=== PATIENT | female | born 1980 | race Caucasian/White ===

== ENCOUNTER → 2017-03-11 | Outpatient (CLI) | payer MEDICAID ==
[2017-03-11 12:56] LABS: HEMATOCRIT 33.2 % (36.0-47.0); HEMOGLOBIN 10.5 g/dL (12.0-15.5); MEAN CORPUSCULAR HGB CONC 31.6 g/dL (32.0-36.0); MEAN CORPUSCULAR VOLUME 73 fl (80-97); PLATELET COUNT 401 10^3/uL (150-450); RED BLOOD COUNT 4.57 10^6/uL (3.72-5.28); RED CELL DISTRIBUTION WIDTH 16.7 % (11.5-14.0); WHITE BLOOD COUNT 6.5 10^3/uL (4.0-10.5)
[2017-03-11 13:23] LABS: ALANINE AMINOTRANSFERASE 18 U/L (9-52); ALBUMIN 4.2 g/dL (3.5-5.0); ALKALINE PHOSPHATASE 48 U/L (38-126); ANION GAP 10 (5-19); ASPARTATE AMINO TRANSFERASE 16 U/L (14-36); BILIRUBIN,DIRECT 0.2 mg/dL (0.0-0.4); BILIRUBIN,TOTAL 0.3 mg/dL (0.2-1.3); BLOOD UREA NITROGEN 13 mg/dL (7-20); CALCIUM 9.5 mg/dL (8.4-10.2); CARBON DIOXIDE 26 mmol/L (22-30); CHLORIDE 105 mmol/L (98-107); GLUCOSE 114 mg/dL (75-110); IRON 12.5 ug/dL (37-170); POTASSIUM 4.5 mmol/L (3.6-5.0); SODIUM 140.5 mmol/L (137-145); TOTAL PROTEIN 6.7 g/dL (6.3-8.2)
[2017-03-11 13:54] LABS: FERRITIN 4.61 ng/mL (6.2-137.0)
[2017-03-11 14:28] LABS: FOLATE > 20.00 ng/mL (>2.76)
[2017-03-14 08:43] LABS: VITAMIN D 25-HYDROXY 32.5 ng/mL (30.0-100.0)
[2017-03-15 11:43] LABS: VITAMIN B6 11.3 ug/L (2.0-32.8)
[2017-03-15 14:42] LABS: VITAMIN B1 (THIAMINE) 121.9 nmol/L (66.5-200.0)
== END ==
LOC: OD 12:11
PROVIDERS: ATTEND Family Medicine
DX: E46 Unspecified protein-calorie malnutrition (principal); K90.9 Intestinal malabsorption, unspecified; Z98.84 Bariatric surgery status
CPT/HCPCS: 36415; 80048; 80076; 82306; 82607; 82728; 82746; 83540; 83970; 84207; 84425; 85027

== ENCOUNTER → 2019-08-09 | Outpatient (CLI) | payer MEDICAID ==
[2019-08-10 06:37] LABS: THYROID PEROXIDASE (TPO) AB 113 IU/mL (0-34)
[2019-08-10 07:06] LABS: THYROGLOBULIN AB <1.0 IU/mL (0.0-0.9)
[2019-08-10 10:45] LABS: ANTINUCLEAR ANTIBODIES Negative (Negative)
== END ==
LOC: OD 09:30
PROVIDERS: ATTEND Clinical Neuropsychologist
DX: E06.3 Autoimmune thyroiditis (principal); F33.0 Major depressive disorder, recurrent, mild; R73.9 Hyperglycemia, unspecified; F90.0 Attention-deficit hyperactivity disorder, predominantly inattentive type; K21.9 Gastro-esophageal reflux disease without esophagitis; R63.5 Abnormal weight gain; N39.3 Stress incontinence (female) (male); H93.13 Tinnitus, bilateral; K58.2 Mixed irritable bowel syndrome; R00.2 Palpitations; G31.84 Mild cognitive impairment of uncertain or unknown etiology; M26.609 Unspecified temporomandibular joint disorder, unspecified side; M13.0 Polyarthritis, unspecified; R53.82 Chronic fatigue, unspecified; G47.30 Sleep apnea, unspecified; Z87.820 Personal history of traumatic brain injury
CPT/HCPCS: 36415; 81291; 82533; 82627; 82670; 83001; 83520; 84144; 84402; 84403; 84481; 86038; 86376

== ENCOUNTER → 2019-08-26 | Outpatient (CLI) | payer MEDICAID ==
[2019-08-26 12:54] LABS: ABSOLUTE BASOPHILS # (AUTO) 0.1 10^3/uL (0.0-0.2); ABSOLUTE EOSINOPHILS # (AUTO) 0.1 10^3/uL (0.0-0.6); ABSOLUTE MONOCYTES (AUTO) 0.4 10^3/uL (0.1-1.4); ABSOLUTE NEUT (AUTO) 3.4 10^3/uL (1.7-8.2); BASOPHILS % (AUTO) 1.4 % (0-2); EOSINOPHILS % (AUTO) 1.2 % (0-6); HEMATOCRIT 40.2 % (36.0-47.0); HEMOGLOBIN 13.8 g/dL (12.0-15.5); LYMPHOCYTES % (AUTO) 33.4 % (13-45); MEAN CORPUSCULAR HEMOGLOBIN 30.6 pg (27.0-33.4); MEAN CORPUSCULAR HGB CONC 34.3 g/dL (32.0-36.0); MEAN CORPUSCULAR VOLUME 89 fl (80-97); PLATELET COUNT 318 10^3/uL (150-450); RED BLOOD COUNT 4.51 10^6/uL (3.72-5.28); RED CELL DISTRIBUTION WIDTH 12.6 % (11.5-14.0); TOTAL CELLS COUNTED % (AUTO) 100 %; WHITE BLOOD COUNT 5.9 10^3/uL (4.0-10.5)
[2019-08-26 13:09] LABS: INTERNATIONAL RATION (INR) 0.97; PARTIAL THROMBOPLASTIN TIME 26.3 SEC (23.5-35.8); PROTHROMBIN TIME 12.9 SEC (11.4-15.4)
[2019-08-26 13:21] LABS: ALBUMIN 4.5 g/dL (3.5-5.0); ALKALINE PHOSPHATASE 56 U/L (38-126); ANION GAP 7 (5-19); ASPARTATE AMINO TRANSFERASE 22 U/L (14-36); BILIRUBIN,TOTAL 0.5 mg/dL (0.2-1.3); BLOOD UREA NITROGEN 12 mg/dL (7-20); CALCIUM 9.6 mg/dL (8.4-10.2); CARBON DIOXIDE 25 mmol/L (22-30); CHLORIDE 103 mmol/L (98-107); GLUCOSE 96 mg/dL (75-110); IRON(TIBC) 96.7 ug/dL (37-170); POTASSIUM 5.1 mmol/L (3.6-5.0); TOTAL PROTEIN 7.4 g/dL (6.3-8.2)
[2019-08-26 13:36] LABS: ERYTHROCYTE SEDIMENTATION RATE 11 mm/hr (0-20)
[2019-08-26 14:25] LABS: C-REACTIVE PROTEIN < 5.0 mg/L (<10.0); FOLATE > 20.00 ng/mL (>2.76)
== END ==
LOC: OD 11:50
PROVIDERS: ATTEND Family Medicine
DX: R58 Hemorrhage, not elsewhere classified (principal)
CPT/HCPCS: 36415; 80053; 82607; 82728; 82746; 82785; 83540; 83550; 84443; 85025; 85610; 85652; 85730; 86140; 86160; 86161

== ENCOUNTER → 2019-12-27 | Outpatient (CLI) | payer MEDICAID ==
--- OUTSIDE RECORDS SUMMARY | 2019-12-28 18:17 | XMS REPORT ---
:1980 [facility] [address] [place] [address] Care Team Providers Name Role Phone MICHAEL BLAIR Primary Care Physician Unavailable Georgi TRIPLETT Attending Clinician Unavailable Ranjan TRIPLETT Attending Clinician Unavailable Harshal Unavailable Unavailable Carina Marshall MD Unavailable Allergies, Adverse Reactions, Alerts Allergy Allergy Status Severity Reaction(s) Onset Inactive Treating C omments Name Type Date Date Clinician Adhesive Allergy to Active Severe Rash substance Medications Ordered Filled Start Stop Current Ordering Indication Dosage Frequency Signature Comments Components Medication Medication Date Date Medication? Clinician (SIG) Name Name Calcium 500 2017-02 Yes 1tablet QD Calcium MG Oral 02-15 500 MG Tablet - 14:25: Oral Historical 08 Tablet - Medication Historical Medication 1 tablet daily Active Iron 2017-02 Yes 1tablet QD Iron (Ferrous 02-15 (Ferrous Sulfate) 14:25: Sulfate) 325 MG Oral 08 325 MG Tablet - Oral Historical Tablet - Medication Historical Medication 1 tablet daily Active Multivitami 2017-02 Yes 1capsul QD Multivitam ns Oral 02-15 e ins Oral Capsule - 14:25: Capsule - Historical 08 Historical Medication Medication 1 capsule daily Active Vitamin C 2017-02 Yes 1tablet QD Vitamin C 100 MG Oral 1 100 MG Tablet - 14:25: Oral Historical 08 Tablet - Medication Historical Medication 1 tablet daily Active Vitamin D 2017-02 Yes 1tablet QD Vitamin D (Cholecalci 02-15 (Cholecalc ferol) 1000 14:25: iferol) UNIT Oral 08 1000 UNIT Tablet - Oral Historical Tablet - Medication Historical Medication 1 tablet daily Active Adderall 30 Yes 2tablet QD Adderall MG Oral 8-21 s 30 MG Oral Tablet - 15:04: Tablet - Historical 15 Historical Medication Medication 2 tablets daily Active Iron No QD Iron (Ferrous 8-21 (Ferrous Sulfate) - 15:04: Sulfate) - Historical 15 Historical Medication Medication daily Active Paxil 40 MG Yes 1tablet QD Paxil 40 Oral Tablet 8-21 MG Oral - 15:04: Tablet - Historical 15 Historical Medication Medication 1 tablet daily Active ibuprofen No 1 TID ibuprofen 800 mg 800 mg tablet Take tablet 1 tablet 3 Take 1 times a day tablet 3 by oral times a route as day by needed. oral route as needed. Tylenol No 2 Q6H Tylenol Extra Extra Strength Strength 500 mg 500 mg tablet Take tablet 2 tablets Take 2 every 6 tablets hours by every 6 oral route hours by as needed. oral route as needed. Adderall 20 No 1 Q1D Adderall mg tablet 20 mg Take 1 tablet tablet Take 1 every day tablet by oral every day route. by oral route. Adderall XR No Adderall 20 mg XR 20 mg capsule,ext capsule,ex ended tended release release TAKE 1 TAKE 1 CAPSULE BY CAPSULE BY MOUTH THREE MOUTH TIMES A DAY THREE TIMES A DAY celecoxib No celecoxib 200 mg 200 mg capsule capsule TAKE 1 TAKE 1 CAPSULE BY CAPSULE BY MOUTH EVERY MOUTH DAY EVERY DAY NEEDED NEEDED dexamethaso No 1mL dexamethas ne sodium one sodium phosphate phosphate (PF) 10 (PF) 10 mg/mL mg/mL injection injection syringe syringe Take 1 mL Take 1 mL by by injection injection route. route. diclofenac No diclofenac 1 % topical 1 % gel APPLY 4 topical GRAMS TO gel APPLY AFFECTED 4 GRAMS TO AREA(S) 4 AFFECTED TIMES A DAY AREA(S) 4 TIMES A DAY diclofenac No diclofenac 3 % topical 3 % gel APPLY topical 1-2 GRAMS gel APPLY TO THE 1-2 GRAMS AFFECTED TO THE AREA 3-4 AFFECTED TIMES A DAY AREA 3-4 TIMES A DIRECTED. DAY DIRECTED. dicyclomine No dicyclomin 10 mg e 10 mg capsule capsule TAKE 1 TAKE 1 CAPSULE BY CAPSULE BY MOUTH FOUR MOUTH FOUR TIMES A DAY TIMES A NEEDED DAY FOR 30 DAYS NEEDED FOR 30 DAYS diphenhydra No 1mL diphenhydr mine 50 amine 50 mg/mL mg/mL injection injection syringe syringe Take 1 mL Take 1 mL by by injection injection route. route. hydrocodone No hydrocodon 5 e 5 mg-acetamin mg-acetami ophen 325 nophen 325 mg tablet mg tablet TAKE 1 TAKE 1 TABLET(S) TABLET(S) EVERY 4 6 EVERY 4 6 HOURS BY HOURS BY ORAL ROUTE ORAL ROUTE NEEDED NEEDED FOR 7 DAYS. FOR 7 DAYS. hydrocortis No hydrocorti one 5 mg sone 5 mg tablet tablet PLEASE SEE PLEASE SEE ATTACHED ATTACHED FOR FOR DETAILED DETAILED DIRECTIONS DIRECTIONS hydroxyzine No 1 TID hydroxyzin HCl 25 mg e HCl 25 tablet Take mg tablet 1 tablet 3 Take 1 times a day tablet 3 by oral times a route as day by needed. oral route as needed. levothyroxi No 1 Q1D levothyrox ne 25 mcg ine 25 mcg tablet Take tablet 1 tablet Take 1 every day tablet by oral every day route as by oral directed route as for 90 directed days. for 90 days. lidocaine-p No lidocaine- rilocaine prilocaine 2.5 %-2.5 % 2.5 %-2.5 topical % topical cream APPLY cream 1-2 GRAMS APPLY 1-2 TO THE GRAMS TO AFFECTED THE AREA 3-4 AFFECTED TIMES A DAY AREA 3-4 TIMES A DIRECTED. DAY DIRECTED. methocarbam No methocarba ol 500 mg mol 500 mg tablet TAKE tablet 1 TABLET BY TAKE 1 MOUTH THREE TABLET BY TIMES A DAY MOUTH NEEDED THREE TIMES A DAY NEEDED omeprazole No omeprazole 40 mg 40 mg capsule,del capsule,de ayed layed release release TAKE 1 TAKE 1 CAPSULE BY CAPSULE BY MOUTH EVERY MOUTH DAY EVERY DAY paroxetine No paroxetine 40 mg 40 mg tablet TAKE tablet 1 TABLET BY TAKE 1 MOUTH EVERY TABLET BY DAY IN THE MOUTH MORNING EVERY DAY IN THE MORNING prednisone No 3 Q1D prednisone 20 mg 20 mg tablet Take tablet 3 tablets Take 3 every day tablets by oral every day route for 7 by oral days. route for 7 days. progesteron No progestero e ne micronized micronized 100 mg 100 mg capsule capsule TAKE 2 TAKE 2 CAPSULES AT CAPSULES BEDTIME AT BEDTIME triamcinolo No triamcinol ne one acetonide acetonide 0.1 % 0.1 % topical topical cream APPLY cream A THIN APPLY A LAYER TO THIN LAYER THE TO THE AFFECTED AFFECTED AREA(S) BY AREA(S) BY TOPICAL TOPICAL ROUTE 2 ROUTE 2 TIMES PER TIMES PER DAY DAY Problems Condition Condition Condition Status Onset Resolution Last Treatin g Comments Name Details Category Date Date Treatment Clinician Date Hypothyroid Hypothyroid Problem Active 2019-02 ism ism 02-20 00:00: 00 Dysplastic Dysplastic Problem Active nevus of Nevus of 6-24 skin of Skin of 00:00: left upper Left Upper 00 limb Limb Multiple Multiple Problem Active joint pain Joint Pain 6-02 00:00: 00 Neck pain Neck Pain Problem Active 6-02 00:00: 00 Thoracic Thoracic Problem Active back pain Back Pain 6-02 00:00: 00 Low back Low Back Problem Active pain Pain 5-07 00:00: 00 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, Disorder, 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 05-24 00:00: 00 Body mass Body Mass Problem Active index 25-29 Index 25-29 4- - - 00:00: overweight Overweight 00 Generalized Generalized Problem Active anxiety Anxiety 4- disorder Disorder 00:00: 00 Gastroesoph Gastroesoph Problem Active ageal ageal 4-09 reflux Reflux 00:00: disease Disease 00 without without esophagitis Esophagitis Irritable 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 Syndrome 00:00: 00 Chronic low Chronic Low Problem Active back pain Back Pain 4- 00:00: 00 DUB DUB Problem Active Harshal (DYSFUNCTIO (DYSFUNCTIO Hilaria NAL UTERINE NAL UTERINE BLEEDING) BLEEDING) INTRAMURAL INTRAMURAL Problem Active Alvin 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 No Condition Inactiv Impairment e Information Available DYSMENORRHE DYSMENORRHE Problem Active David Caputo MENORRHAGIA MENORRHAGIA Problem Active JOSE RAUL Caputo REGULAR REGULAR CYCLE CYCLE PREOP PREOP Problem Active Harshal EXAMINATION EXAMINATION Hilaria FATIGUE FATIGUE Problem Active Shara Marshall POSTOPERATI POSTOPERATI Problem Active JEWEL Caputo EXAMINATION EXAMINATION Procedures Procedure Date / Time Performed Performing Clinician Tyrese ortiz US, pelvis, transabdominal + 2019-12-23 00:00:00 transvaginal pulse oximetry (PROC) 2019-12-15 00:00:00 pulse oximetry (PROC) 2019-12-01 00:00:00 MRI, lumbar spine, w/o contrast 2019-08-17 00:00:00 XR, cervical spine 2019-06-22 00:00:00 XR, thoracic spine 2019-06-22 00:00:00 XR, lumbar spine 2019-06-22 00:00:00 Other 2017-12-16 00:00:00 Gastrointestinal Surgery 2015-11-16 00:00:00 OFFICE/OUTPATIENT VISIT, EST 2015-05-03 10:45:00 OFFICE/OUTPATIENT VISIT, EST 2015-03-07 10:30:00 FLU VACCINE AGE 3 \T\ OVER, IM 2014-12-19 14:30:00 IMMUNIZATION ADMIN 2014-12-19 14:30:00 OFFICE/OUTPATIENT VISIT, NEW 2014 14:30:00 Tubal Ligation 2013-10-30 00:00:00 Cholecystectomy 2007-01-15 00:00:00 Delivery Hilaria Caputo Colonoscopy Harshal, Hilaria Endoscopy Hilaria Caputo Gallbladder Surgery Hilaria Caputo Gastrectomy Hilaria Caputo Mammogram, Screening Hilaria Caputo Pap Smear Hilaria Caputo Ultrasound, Transvaginal Hilaria Caputo Caesarean Section Results Test Description Test Time Test Comments Text Results Atomic Results Result Comments COMPREHENSIVE METABOLIC PANEL 2019-12-21 17:37:00 Test Item Value Reference Range Comments GLUCOSE (test code = 2345-7) 82 mg/dL 65-99 Fas ting reference interval UREA NITROGEN (BUN) (test 11 mg/dL 09-08 code = 3094-0) CREATININE (test code = 0.94 mg/dL 0.50-1.10 0-0) eGFR NON-AFR. MALAGASY (test 75 mL/min/1.73m2 >=60 code = 95956-8) eGFR (test 87 mL/min/1.73m2 >=60 code = 17284-6) BUN/CREATININE RATIO (test NOT APPLICABLE (calc) 08-06 code = 3097-3) SODIUM (test code = 2951-2) 138 mmol/L 135-146 POTASSIUM (test code = 5.0 mmol/L 3.5-5.3 3-3) CHLORIDE (test code = 105 mmol/L 98-110 2074-0) CARBON DIOXIDE (test code = 27 mmol/L 20-32 2027-) CALCIUM (test code = 8.9 mg/dL 8.6-10.2 99511-4) PROTEIN, TOTAL (test code = 5.9 g/dL 6.1-8.1 2885-2) ALBUMIN (test code = 1751-7) 4.0 g/dL 3.6-5.1 GLOBULIN (test code = 1.9 g/dL (calc) 1.9-3.7 30182-1) ALBUMIN/GLOBULIN RATIO (test 2.1 (calc) 1.0-2.5 code = 1759-0) BILIRUBIN, TOTAL (test code 0.3 mg/dL 0.2-1.2 = 1974-) ALKALINE PHOSPHATASE (test 43 U/L 31-125 code = 6768-6) AST (test code = 1920-8) 11 U/L 10-30 ALT (test code = 1742-6) 10 U/L 6-29 CBC (INCLUDES DIFF/PLT)2019-12-21 17:37:00 Test Item Value Reference Range Comments WHITE BLOOD CELL COUNT (test code = 6690-2) 7.5 Thousand/uL 3.8- 10.8 RED BLOOD CELL COUNT (test code = 789-8) 4.30 Million/uL 3.80-5. 10 HEMOGLOBIN (test code = 718-7) 13.4 g/dL 11.7-15.5 HEMATOCRIT (test code = 4544-3) 40.6 % 35.0-45.0 MCV (test code = 787-2) 94.4 fL 80.0-100.0 MCH (test code = 785-6) 31.2 pg 27.0-33.0 MCHC (test code = 786-4) 33.0 g/dL 32.0-36.0 RDW (test code = 788-0) 12.9 % 11.0-15.0 PLATELET COUNT (test code = 777-3) 259 Thousand/uL 140-400 MPV (test code = 776-5) 9.4 fL 7.5-12.5 ABSOLUTE NEUTROPHILS (test code = 751-8) 4965 cells/uL 1500-78 00 ABSOLUTE LYMPHOCYTES (test code = 731-0) 1950 cells/uL 850-390 0 ABSOLUTE MONOCYTES (test code = 742-7) 413 cells/uL 200-950 ABSOLUTE EOSINOPHILS (test code = 711-2) 83 cells/uL 15-500 ABSOLUTE BASOPHILS (test code = 704-7) 90 cells/uL 0-200 NEUTROPHILS (test code = 770-8) 66.2 % LYMPHOCYTES (test code = 736-9) 26.0 % MONOCYTES (test code = 5905-5) 5.5 % EOSINOPHILS (test code = 713-8) 1.1 % BASOPHILS (test code = 706-2) 1.2 % YUE SCREEN, IFA, W/REFL TITER AND [id number] 17:37:00 Test Item Value Reference Range Comments YUE SCREEN, IFA (test POSITIVE NEGATIVE YUE IFA is a first line screen for code = 74367-9) detecting thepre sence of up to approximately 15 0 autoantibodies invarious autoim mune diseases. A positive YUE IFA resultis suggestive of au toimmune disease and reflexes tot iter and pattern. Further laborato ry testing may beconsidered if clinically indicated.For ad ditional information, ple ase refer [email or web address] onNfoshare/faq/CBT824( This link is being provided for informational/ed ucational purposes only.) ANTINUCLEAR ANTIBODIES TITER AND [id number] 17:37:00 Test Item Value Reference Range Comments YUE TITER (test 1:40 titer <=40 A low level YUE titer may be code = 5048-4) present in pre-clinicalauto immune diseases and normal indiv iduals.Reference Range<1:40 Negat ive1:40-1:80 Low Antibody Level>1 :80 Elevated Antibody Level YUE PATTERN (test Nuclear, Speckled Speckled pat tern is associated code = 37050-8) with mixed conne ctivetissue disease (MCTD), systemic lupus erythematosus(SL E), Sjogren's syndrome, dermat omyositis, andsystemic sclerosis/polymy ositis overlap.AC-2,4,5 ,29: SpeckledInternat ional Consensus on YUE Patterns(https:/ /doi.org/10.1515 /zlow-[email or web address]) CREATINE KINASE, [id number] 17:37:00 Test Item Value Reference Range Comments CREATINE KINASE, TOTAL (test code = 2157-6) 26 U/L 29-1 43 [id number] 17:37:00 Test Item Value Reference Range Comments TSH (test code = 3016-3) 1.72 mIU/L .4-4.5 Referen ce Range> or = 20 Years 0.40-4.50Pregnan cy RangesFirst trimester 0.26-2 .66Second trimester 0.55-2 .73Third trimester 0.43-2 .91 Drugs identified in Urine by Screen [id number] 15:24:00 Test Item Value Reference Range Comments RESULT THC (test code = RESULT THC) negative INTERPRETATION THC (test code = INTERPRETATION THC) normal RESULT BUP (Buprenorphine, Suboxone, Subutex) (test negative code = RESULT BUP (Buprenorphine, Suboxone, Subutex)) INTERPRETATION BUP (Buprenorphine, Suboxone, normal Subutex) (test code = INTERPRETATION BUP (Buprenorphine, Suboxone, Subutex)) RESULT BAR (Barbiturates) (test code = RESULT BAR negative (Barbiturates)) INTERPRETATION BAR (Barbiturates) (test code = normal INTERPRETATION BAR (Barbiturates)) RESULT BZO (Benzodiazepines) (test code = RESULT negative BZO (Benzodiazepines)) INTERPRETATION BZO (Benzodiazepines) (test code = normal INTERPRETATION BZO (Benzodiazepines)) RESULT MTD (Methadone) (test code = RESULT MTD negative (Methadone)) INTERPRETATION MTD (Methadone) (test code = normal INTERPRETATION MTD (Methadone)) RESULT AMP (Amphetamines) (test code = RESULT AMP positive (Amphetamines)) INTERPRETATION AMP (Amphetamines) (test code = normal INTERPRETATION AMP (Amphetamines)) RESULT MOP (Morphine, Heroin) (test code = RESULT negative MOP (Morphine, Heroin)) INTERPRETATION MOP (Morphine, Heroin) (test code = abnormal INTERPRETATION MOP (Morphine, Heroin)) RESULT OXY (Oxycodone) (test code = RESULT OXY negative (Oxycodone)) INTERPRETATION OXY (Oxycodone) (test code = normal INTERPRETATION OXY (Oxycodone)) RESULT MDMA (Ecstasy) (test code = RESULT MDMA negative (Ecstasy)) INTERPRETATION MDMA (Ecstasy) (test code = normal INTERPRETATION MDMA (Ecstasy)) RESULT STACIA (Cocaine) (test code = RESULT STACIA negative (Cocaine)) INTERPRETATION STACIA (Cocaine) (test code = normal INTERPRETATION STACIA (Cocaine)) RESULT PCP (test code = RESULT PCP) negative INTERPRETATION PCP (test code = INTERPRETATION PCP) normal RESULT MET (Methamphetamines) (test code = RESULT negative MET (Methamphetamines)) INTERPRETATION MET (Methamphetamines) (test code = normal INTERPRETATION MET (Methamphetamines)) specimen validity [id number] 00:00:00 Test Item Value Reference Range Comments creatinine, seda (test code = creatinine, seda) 113.1 mg/dL 5-400 pH, seda (test code = pH, seda) 8.1 4.5-9.0 oxidants, seda (test code = oxidants, seda) not detected 0-50 specific gravity, seda (test code = specific 1.012 1.0 03-1.035 gravity, seda) amphetamine, seda (test code = amphetamine, 1883 NG/mL >100 seda) amphetamine, cutoff (test code = amphetamine, 100 NG/mL >1 00 cutoff) amphetamine (test code = amphetamine) detected >100 amphetamine, interp (test code = amphetamine, consistent >1 00 interp) amphetamine, creat adj (test code = 1665 NG/mL >100 amphetamine, creat adj) methamphetamine, seda (test code = 0 NG/mL >100 methamphetamine, seda) methamphetamine, cutoff (test code = 100 NG/mL >100 methamphetamine, cutoff) methamphetamine (test code = methamphetamine) not detected >1 00 ritalinic acid, seda (test code = ritalinic 0 NG/mL >50 acid, seda) ritalinic acid, cutoff (test code = ritalinic 50 NG/mL >5 0 acid, cutoff) ritalinic acid (test code = ritalinic acid) not detected >50 duloxetine, seda (test code = duloxetine, seda) 0 NG/mL >50 duloxetine, cutoff (test code = duloxetine, 50 NG/mL >50 cutoff) duloxetine (test code = duloxetine) not detected >50 trazodone , seda (test code = trazodone , seda) 0 NG/mL >50 trazodone , cutoff (test code = trazodone , 50 NG/mL >50 cutoff) trazodone (test code = trazodone) not detected >50 gabapentin, seda (test code = gabapentin, seda) 0 NG/mL >250 gabapentin, cutoff (test code = gabapentin, 250 NG/mL >250 cutoff) gabapentin (test code = gabapentin) not detected >250 pregabalin, seda (test code = pregabalin, seda) 0 NG/mL >250 pregabalin, cutoff (test code = pregabalin, 250 NG/mL >250 cutoff) pregabalin (test code = pregabalin) not detected >250 topiramate, seda (test code = topiramate, seda) 0 NG/mL >50 topiramate, cutoff (test code = topiramate, 50 NG/mL >50 cutoff) topiramate (test code = topiramate) not detected >50 fentanyl, seda (test code = fentanyl, seda) 0 NG/mL >1.0 fentanyl, cutoff (test code = fentanyl, cutoff) 1.0 NG/mL >1.0 fentanyl (test code = fentanyl) not detected >1.0 norfentanyl, seda (test code = norfentanyl, 0 NG/mL >10 seda) norfentanyl, cutoff (test code = norfentanyl, 10 NG/mL >1 0 cutoff) norfentanyl (test code = norfentanyl) not detected >10 norketamine, seda (test code = norketamine, 0 NG/mL >50 seda) norketamine, cutoff (test code = norketamine, 50 NG/mL >5 0 cutoff) norketamine (test code = norketamine) not detected >50 tapentadol, seda (test code = tapentadol, seda) 0 NG/mL >50 tapentadol, cutoff (test code = tapentadol, 50 NG/mL >50 cutoff) tapentadol (test code = tapentadol) not detected >50 N-desmethyltapentadol, seda (test code = 0 NG/mL >50 N-desmethyltapentadol, seda) N-desmethyltapentadol, cutoff (test code = 50 NG/mL >50 N-desmethyltapentadol, cutoff) N-desmethyltapentadol (test code = not detected >50 N-desmethyltapentadol) tramadol, seda (test code = tramadol, seda) 0 NG/mL >50 tramadol, cutoff (test code = tramadol, cutoff) 50 NG/mL >50 tramadol (test code = tramadol) not detected >50 desmethyltramadol , seda (test code = 0 NG/mL >50 desmethyltramadol , seda) desmethyltramadol , cutoff (test code = 50 NG/mL >50 desmethyltramadol , cutoff) desmethyltramadol (test code = not detected >50 desmethyltramadol) butalbital, seda (test code = butalbital, seda) 0 NG/mL >200 butalbital, cutoff (test code = butalbital, 200 NG/mL >200 cutoff) butalbital (test code = butalbital) not detected >200 phenobarbital, seda (test code = phenobarbital, 0 NG/mL >200 seda) phenobarbital, cutoff (test code = 200 NG/mL >200 phenobarbital, cutoff) phenobarbital (test code = phenobarbital) not detected >200 alprazolam, seda (test code = alprazolam, seda) 0 NG/mL >50 alprazolam, cutoff (test code = alprazolam, 50 NG/mL >50 cutoff) alprazolam (test code = alprazolam) not detected >50 A-hydroxyalprazolam, sdea (test code = 0 NG/mL >50 A-hydroxyalprazolam, seda) A-hydroxyalprazolam, cutoff (test code = 50 NG/mL >50 A-hydroxyalprazolam, cutoff) A-hydroxyalprazolam (test code = not detected >50 A-hydroxyalprazolam) 7-aminoclonazepam, seda (test code = 0 NG/mL >50 7-aminoclonazepam, seda) 7-aminoclonazepam, cutoff (test code = 50 NG/mL >50 7-aminoclonazepam, cutoff) 7-aminoclonazepam (test code = not detected >50 7-aminoclonazepam) nordiazepam, seda (test code = nordiazepam, 0 NG/mL >50 seda) nordiazepam, cutoff (test code = nordiazepam, 50 NG/mL >5 0 cutoff) nordiazepam (test code = nordiazepam) not detected >50 temazepam, seda (test code = temazepam, seda) 0 NG/mL >5 0 temazepam, cutoff (test code = temazepam, 50 NG/mL >50 cutoff) temazepam (test code = temazepam) not detected >50 oxazepam, seda (test code = oxazepam, seda) 0 NG/mL >50 oxazepam, cutoff (test code = oxazepam, cutoff) 50 NG/mL >50 oxazepam (test code = oxazepam) not detected >50 lorazepam, seda (test code = lorazepam, seda) 0 NG/mL >5 0 lorazepam, cutoff (test code = lorazepam, 50 NG/mL >50 cutoff) lorazepam (test code = lorazepam) not detected >50 carisoprodol, seda (test code = carisoprodol, 0 NG/mL >5 0 seda) carisoprodol, cutoff (test code = carisoprodol, 50 NG/mL >50 cutoff) carisoprodol (test code = carisoprodol) not detected >50 buprenorphine, seda (test code = buprenorphine, 0 NG/mL >2.5 seda) buprenorphine, cutoff (test code = 2.5 NG/mL >2.5 buprenorphine, cutoff) buprenorphine (test code = buprenorphine) not detected >2.5 norbuprenorphine, seda (test code = 0 NG/mL >10 norbuprenorphine, seda) norbuprenorphine, cutoff (test code = 10 NG/mL >10 norbuprenorphine, cutoff) norbuprenorphine (test code = norbuprenorphine) not detected >10 ethyl glucuronide, seda (test code = ethyl 0 NG/mL >250 glucuronide, seda) ethyl glucuronide, cutoff (test code = ethyl 250 NG/mL >25 0 glucuronide, cutoff) ethyl glucuronide (test code = ethyl not detected >250 glucuronide) ethyl sulfate, seda (test code = ethyl sulfate, 0 NG/mL >150 seda) ethyl sulfate, cutoff (test code = ethyl 150 NG/mL >150 sulfate, cutoff) ethyl sulfate (test code = ethyl sulfate) not detected >150 methadone, seda (test code = methadone, seda) 0 NG/mL >5 0 methadone, cutoff (test code = methadone, 50 NG/mL >50 cutoff) methadone (test code = methadone) not detected >50 EDDP, seda (test code = EDDP, seda) 0 NG/mL >50 EDDP, cutoff (test code = EDDP, cutoff) 50 NG/mL >50 EDDP (test code = EDDP) not detected >50 codeine, seda (test code = codeine, seda) 0 NG/mL >50 codeine, cutoff (test code = codeine, cutoff) 50 NG/mL >5 0 codeine (test code = codeine) not detected >50 morphine, seda (test code = morphine, seda) 0 NG/mL >50 morphine, cutoff (test code = morphine, cutoff) 50 NG/mL >50 morphine (test code = morphine) not detected >50 6-acetylmorphine , seda (test code = 0 NG/mL >25 6-acetylmorphine , seda) 6-acetylmorphine , cutoff (test code = 25 NG/mL >25 6-acetylmorphine , cutoff) 6-acetylmorphine (test code = 6-acetylmorphine) not detected >25 hydrocodone, seda (test code = hydrocodone, 0 NG/mL >50 seda) hydrocodone, cutoff (test code = hydrocodone, 50 NG/mL >5 0 cutoff) hydrocodone (test code = hydrocodone) not detected >50 hydromorphone, seda (test code = hydromorphone, 0 NG/mL >50 seda) hydromorphone, cutoff (test code = 50 NG/mL >50 hydromorphone, cutoff) hydromorphone (test code = hydromorphone) not detected >50 norhydrocodone, seda (test code = 0 NG/mL >50 norhydrocodone, seda) norhydrocodone, cut (test code = 50 NG/mL >50 norhydrocodone, cut) norhydrocodone (test code = norhydrocodone) not detected >50 normorphine, seda (test code = normorphine, 0 NG/mL >50 seda) normorphine, cut (test code = normorphine, cut) 50 NG/mL >50 normorphine (test code = normorphine) not detected >50 norcodeine, seda (test code = norcodeine, seda) 0 NG/mL >50 norcodeine, cutoff (test code = norcodeine, 50 NG/mL >50 cutoff) norcodeine, qual (test code = norcodeine, qual) not detected >50 oxycodone, seda (test code = oxycodone, seda) 0 NG/mL >5 0 oxycodone, cutoff (test code = oxycodone, 50 NG/mL >50 cutoff) oxycodone (test code = oxycodone) not detected >50 noroxycodone, seda (test code = noroxycodone, 0 NG/mL >5 0 seda) noroxycodone, cutoff (test code = noroxycodone, 50 NG/mL >50 cutoff) noroxycodone (test code = noroxycodone) not detected >50 oxymorphone, seda (test code = oxymorphone, 0 NG/mL >50 seda) oxymorphone, cutoff (test code = oxymorphone, 50 NG/mL >5 0 cutoff) oxymorphone (test code = oxymorphone) not detected >50 noroxymorphone, seda (test code = 0 NG/mL >50 noroxymorphone, seda) noroxymorphone, cutoff (test code = 50 NG/mL >50 noroxymorphone, cutoff) noroxymorphone (test code = noroxymorphone) not detected >50 normeperidine, seda (test code = normeperidine, 0 NG/mL >50 seda) normeperidine, cutoff (test code = 50 NG/mL >50 normeperidine, cutoff) normeperidine (test code = normeperidine) not detected >50 naloxone, seda (test code = naloxone, seda) 0 NG/mL >10 naloxone, cutoff (test code = naloxone, cutoff) 10 NG/mL >10 naloxone (test code = naloxone) not detected >10 naltrexone, seda (test code = naltrexone, seda) 0 NG/mL >25 naltrexone, cutoff (test code = naltrexone, 25 NG/mL >25 cutoff) naltrexone (test code = naltrexone) not detected >25 amitriptyline, seda (test code = amitriptyline, 0 NG/mL >50 seda) amitriptyline, cutoff (test code = 50 NG/mL >50 amitriptyline, cutoff) amitriptyline (test code = amitriptyline) not detected >50 nortriptyline, seda (test code = nortriptyline, 0 NG/mL >50 seda) nortriptyline, cutoff (test code = 50 NG/mL >50 nortriptyline, cutoff) nortriptyline (test code = nortriptyline) not detected >50 cyclobenzaprine, seda (test code = 0 NG/mL >50 cyclobenzaprine, seda) cyclobenzaprine, cutoff (test code = 50 NG/mL >50 cyclobenzaprine, cutoff) cyclobenzaprine (test code = cyclobenzaprine) not detected >5 0 doxepin, seda (test code = doxepin, seda) 0 NG/mL >50 doxepin, cutoff (test code = doxepin, cutoff) 50 NG/mL >5 0 doxepin (test code = doxepin) not detected >50 THC-cooh, seda (test code = THC-cooh, seda) 0 NG/mL >25 THC-cooh, cutoff (test code = THC-cooh, cutoff) 25 NG/mL >25 THC-cooh (test code = THC-cooh) not detected >25 benzoylecgonine, seda (test code = 0 NG/mL >100 benzoylecgonine, seda) benzoylecgonine, cutoff (test code = 100 NG/mL >100 benzoylecgonine, cutoff) benzoylecgonine (test code = benzoylecgonine) not detected >1 00 MDMA, seda (test code = MDMA, seda) 0 NG/mL >50 MDMA, cutoff (test code = MDMA, cutoff) 50 NG/mL >50 MDMA (test code = MDMA) not detected >50 mda, seda (test code = mda, seda) 0 NG/mL >50 mda, cutoff (test code = mda, cutoff) 50 NG/mL >50 mda (test code = mda) not detected >50 specimen validity [id number] 00:00:00 Test Item Value Reference Range Comments creatinine, seda (test code = creatinine, seda) 113.1 mg/dL 5-400 pH, seda (test code = pH, seda) 8.1 4.5-9.0 oxidants, seda (test code = oxidants, seda) not detected 0-50 specific gravity, seda (test code = specific 1.012 1.0 03-1.035 gravity, seda) amphetamine, seda (test code = amphetamine, 1883 NG/mL >100 seda) amphetamine, cutoff (test code = amphetamine, 100 NG/mL >1 00 cutoff) amphetamine (test code = amphetamine) detected >100 amphetamine, interp (test code = amphetamine, consistent >1 00 interp) amphetamine, creat adj (test code = 1665 NG/mL >100 amphetamine, creat adj) methamphetamine, seda (test code = 0 NG/mL >100 methamphetamine, seda) methamphetamine, cutoff (test code = 100 NG/mL >100 methamphetamine, cutoff) methamphetamine (test code = methamphetamine) not detected >1 00 ritalinic acid, seda (test code = ritalinic 0 NG/mL >50 acid, seda) ritalinic acid, cutoff (test code = ritalinic 50 NG/mL >5 0 acid, cutoff) ritalinic acid (test code = ritalinic acid) not detected >50 duloxetine, seda (test code = duloxetine, seda) 0 NG/mL >50 duloxetine, cutoff (test code = duloxetine, 50 NG/mL >50 cutoff) duloxetine (test code = duloxetine) not detected >50 trazodone , seda (test code = trazodone , seda) 0 NG/mL >50 trazodone , cutoff (test code = trazodone , 50 NG/mL >50 cutoff) trazodone (test code = trazodone) not detected >50 gabapentin, seda (test code = gabapentin, seda) 0 NG/mL >250 gabapentin, cutoff (test code = gabapentin, 250 NG/mL >250 cutoff) gabapentin (test code = gabapentin) not detected >250 pregabalin, seda (test code = pregabalin, seda) 0 NG/mL >250 pregabalin, cutoff (test code = pregabalin, 250 NG/mL >250 cutoff) pregabalin (test code = pregabalin) not detected >250 topiramate, seda (test code = topiramate, seda) 0 NG/mL >50 topiramate, cutoff (test code = topiramate, 50 NG/mL >50 cutoff) topiramate (test code = topiramate) not detected >50 fentanyl, seda (test code = fentanyl, seda) 0 NG/mL >1.0 fentanyl, cutoff (test code = fentanyl, cutoff) 1.0 NG/mL >1.0 fentanyl (test code = fentanyl) not detected >1.0 norfentanyl, seda (test code = norfentanyl, 0 NG/mL >10 seda) norfentanyl, cutoff (test code = norfentanyl, 10 NG/mL >1 0 cutoff) norfentanyl (test code = norfentanyl) not detected >10 norketamine, seda (test code = norketamine, 0 NG/mL >50 seda) norketamine, cutoff (test code = norketamine, 50 NG/mL >5 0 cutoff) norketamine (test code = norketamine) not detected >50 tapentadol, seda (test code = tapentadol, seda) 0 NG/mL >50 tapentadol, cutoff (test code = tapentadol, 50 NG/mL >50 cutoff) tapentadol (test code = tapentadol) not detected >50 N-desmethyltapentadol, seda (test code = 0 NG/mL >50 N-desmethyltapentadol, seda) N-desmethyltapentadol, cutoff (test code = 50 NG/mL >50 N-desmethyltapentadol, cutoff) N-desmethyltapentadol (test code = not detected >50 N-desmethyltapentadol) tramadol, seda (test code = tramadol, seda) 0 NG/mL >50 tramadol, cutoff (test code = tramadol, cutoff) 50 NG/mL >50 tramadol (test code = tramadol) not detected >50 desmethyltramadol , seda (test code = 0 NG/mL >50 desmethyltramadol , seda) desmethyltramadol , cutoff (test code = 50 NG/mL >50 desmethyltramadol , cutoff) desmethyltramadol (test code = not detected >50 desmethyltramadol) butalbital, seda (test code = butalbital, seda) 0 NG/mL >200 butalbital, cutoff (test code = butalbital, 200 NG/mL >200 cutoff) butalbital (test code = butalbital) not detected >200 phenobarbital, seda (test code = phenobarbital, 0 NG/mL >200 seda) phenobarbital, cutoff (test code = 200 NG/mL >200 phenobarbital, cutoff) phenobarbital (test code = phenobarbital) not detected >200 alprazolam, seda (test code = alprazolam, seda) 0 NG/mL >50 alprazolam, cutoff (test code = alprazolam, 50 NG/mL >50 cutoff) alprazolam (test code = alprazolam) not detected >50 A-hydroxyalprazolam, seda (test code = 0 NG/mL >50 A-hydroxyalprazolam, seda) A-hydroxyalprazolam, cutoff (test code = 50 NG/mL >50 A-hydroxyalprazolam, cutoff) A-hydroxyalprazolam (test code = not detected >50 A-hydroxyalprazolam) 7-aminoclonazepam, seda (test code = 0 NG/mL >50 7-aminoclonazepam, seda) 7-aminoclonazepam, cutoff (test code = 50 NG/mL >50 7-aminoclonazepam, cutoff) 7-aminoclonazepam (test code = not detected >50 7-aminoclonazepam) nordiazepam, seda (test code = nordiazepam, 0 NG/mL >50 seda) nordiazepam, cutoff (test code = nordiazepam, 50 NG/mL >5 0 cutoff) nordiazepam (test code = nordiazepam) not detected >50 temazepam, seda (test code = temazepam, seda) 0 NG/mL >5 0 temazepam, cutoff (test code = temazepam, 50 NG/mL >50 cutoff) temazepam (test code = temazepam) not detected >50 oxazepam, seda (test code = oxazepam, seda) 0 NG/mL >50 oxazepam, cutoff (test code = oxazepam, cutoff) 50 NG/mL >50 oxazepam (test code = oxazepam) not detected >50 lorazepam, seda (test code = lorazepam, seda) 0 NG/mL >5 0 lorazepam, cutoff (test code = lorazepam, 50 NG/mL >50 cutoff) lorazepam (test code = lorazepam) not detected >50 carisoprodol, seda (test code = carisoprodol, 0 NG/mL >5 0 seda) carisoprodol, cutoff (test code = carisoprodol, 50 NG/mL >50 cutoff) carisoprodol (test code = carisoprodol) not detected >50 buprenorphine, seda (test code = buprenorphine, 0 NG/mL >2.5 seda) buprenorphine, cutoff (test code = 2.5 NG/mL >2.5 buprenorphine, cutoff) buprenorphine (test code = buprenorphine) not detected >2.5 norbuprenorphine, seda (test code = 0 NG/mL >10 norbuprenorphine, seda) norbuprenorphine, cutoff (test code = 10 NG/mL >10 norbuprenorphine, cutoff) norbuprenorphine (test code = norbuprenorphine) not detected >10 ethyl glucuronide, seda (test code = ethyl 0 NG/mL >250 glucuronide, seda) ethyl glucuronide, cutoff (test code = ethyl 250 NG/mL >25 0 glucuronide, cutoff) ethyl glucuronide (test code = ethyl not detected >250 glucuronide) ethyl sulfate, seda (test code = ethyl sulfate, 0 NG/mL >150 seda) ethyl sulfate, cutoff (test code = ethyl 150 NG/mL >150 sulfate, cutoff) ethyl sulfate (test code = ethyl sulfate) not detected >150 methadone, seda (test code = methadone, seda) 0 NG/mL >5 0 methadone, cutoff (test code = methadone, 50 NG/mL >50 cutoff) methadone (test code = methadone) not detected >50 EDDP, seda (test code = EDDP, seda) 0 NG/mL >50 EDDP, cutoff (test code = EDDP, cutoff) 50 NG/mL >50 EDDP (test code = EDDP) not detected >50 codeine, seda (test code = codeine, seda) 0 NG/mL >50 codeine, cutoff (test code = codeine, cutoff) 50 NG/mL >5 0 codeine (test code = codeine) not detected >50 morphine, seda (test code = morphine, seda) 0 NG/mL >50 morphine, cutoff (test code = morphine, cutoff) 50 NG/mL >50 morphine (test code = morphine) not detected >50 6-acetylmorphine , seda (test code = 0 NG/mL >25 6-acetylmorphine , seda) 6-acetylmorphine , cutoff (test code = 25 NG/mL >25 6-acetylmorphine , cutoff) 6-acetylmorphine (test code = 6-acetylmorphine) not detected >25 hydrocodone, seda (test code = hydrocodone, 0 NG/mL >50 seda) hydrocodone, cutoff (test code = hydrocodone, 50 NG/mL >5 0 cutoff) hydrocodone (test code = hydrocodone) not detected >50 hydromorphone, seda (test code = hydromorphone, 0 NG/mL >50 seda) hydromorphone, cutoff (test code = 50 NG/mL >50 hydromorphone, cutoff) hydromorphone (test code = hydromorphone) not detected >50 norhydrocodone, seda (test code = 0 NG/mL >50 norhydrocodone, seda) norhydrocodone, cut (test code = 50 NG/mL >50 norhydrocodone, cut) norhydrocodone (test code = norhydrocodone) not detected >50 normorphine, seda (test code = normorphine, 0 NG/mL >50 seda) normorphine, cut (test code = normorphine, cut) 50 NG/mL >50 normorphine (test code = normorphine) not detected >50 norcodeine, seda (test code = norcodeine, seda) 0 NG/mL >50 norcodeine, cutoff (test code = norcodeine, 50 NG/mL >50 cutoff) norcodeine, qual (test code = norcodeine, qual) not detected >50 oxycodone, seda (test code = oxycodone, seda) 0 NG/mL >5 0 oxycodone, cutoff (test code = oxycodone, 50 NG/mL >50 cutoff) oxycodone (test code = oxycodone) not detected >50 noroxycodone, seda (test code = noroxycodone, 0 NG/mL >5 0 seda) noroxycodone, cutoff (test code = noroxycodone, 50 NG/mL >50 cutoff) noroxycodone (test code = noroxycodone) not detected >50 oxymorphone, seda (test code = oxymorphone, 0 NG/mL >50 seda) oxymorphone, cutoff (test code = oxymorphone, 50 NG/mL >5 0 cutoff) oxymorphone (test code = oxymorphone) not detected >50 noroxymorphone, seda (test code = 0 NG/mL >50 noroxymorphone, seda) noroxymorphone, cutoff (test code = 50 NG/mL >50 noroxymorphone, cutoff) noroxymorphone (test code = noroxymorphone) not detected >50 normeperidine, seda (test code = normeperidine, 0 NG/mL >50 seda) normeperidine, cutoff (test code = 50 NG/mL >50 normeperidine, cutoff) normeperidine (test code = normeperidine) not detected >50 naloxone, seda (test code = naloxone, seda) 0 NG/mL >10 naloxone, cutoff (test code = naloxone, cutoff) 10 NG/mL >10 naloxone (test code = naloxone) not detected >10 naltrexone, seda (test code = naltrexone, seda) 0 NG/mL >25 naltrexone, cutoff (test code = naltrexone, 25 NG/mL >25 cutoff) naltrexone (test code = naltrexone) not detected >25 amitriptyline, seda (test code = amitriptyline, 0 NG/mL >50 seda) amitriptyline, cutoff (test code = 50 NG/mL >50 amitriptyline, cutoff) amitriptyline (test code = amitriptyline) not detected >50 nortriptyline, seda (test code = nortriptyline, 0 NG/mL >50 seda) nortriptyline, cutoff (test code = 50 NG/mL >50 nortriptyline, cutoff) nortriptyline (test code = nortriptyline) not detected >50 cyclobenzaprine, seda (test code = 0 NG/mL >50 cyclobenzaprine, seda) cyclobenzaprine, cutoff (test code = 50 NG/mL >50 cyclobenzaprine, cutoff) cyclobenzaprine (test code = cyclobenzaprine) not detected >5 0 doxepin, seda (test code = doxepin, seda) 0 NG/mL >50 doxepin, cutoff (test code = doxepin, cutoff) 50 NG/mL >5 0 doxepin (test code = doxepin) not detected >50 THC-cooh, seda (test code = THC-cooh, seda) 0 NG/mL >25 THC-cooh, cutoff (test code = THC-cooh, cutoff) 25 NG/mL >25 THC-cooh (test code = THC-cooh) not detected >25 benzoylecgonine, seda (test code = 0 NG/mL >100 benzoylecgonine, seda) benzoylecgonine, cutoff (test code = 100 NG/mL >100 benzoylecgonine, cutoff) benzoylecgonine (test code = benzoylecgonine) not detected >1 00 MDMA, seda (test code = MDMA, seda) 0 NG/mL >50 MDMA, cutoff (test code = MDMA, cutoff) 50 NG/mL >50 MDMA (test code = MDMA) not detected >50 mda, seda (test code = mda, seda) 0 NG/mL >50 mda, cutoff (test code = mda, cutoff) 50 NG/mL >50 mda (test code = mda) not detected >50 Drugs identified in Urine by Screen [id number] 10:42:00 Test Item Value Reference Range Comments RESULT THC (test code = RESULT THC) negative INTERPRETATION THC (test code = INTERPRETATION THC) normal RESULT BUP (Buprenorphine, Suboxone, Subutex) (test negative code = RESULT BUP (Buprenorphine, Suboxone, Subutex)) INTERPRETATION BUP (Buprenorphine, Suboxone, normal Subutex) (test code = INTERPRETATION BUP (Buprenorphine, Suboxone, Subutex)) RESULT BAR (Barbiturates) (test code = RESULT BAR negative (Barbiturates)) INTERPRETATION BAR (Barbiturates) (test code = normal INTERPRETATION BAR (Barbiturates)) RESULT BZO (Benzodiazepines) (test code = RESULT negative BZO (Benzodiazepines)) INTERPRETATION BZO (Benzodiazepines) (test code = normal INTERPRETATION BZO (Benzodiazepines)) RESULT MTD (Methadone) (test code = RESULT MTD negative (Methadone)) INTERPRETATION MTD (Methadone) (test code = normal INTERPRETATION MTD (Methadone)) RESULT AMP (Amphetamines) (test code = RESULT AMP positive (Amphetamines)) INTERPRETATION AMP (Amphetamines) (test code = normal INTERPRETATION AMP (Amphetamines)) RESULT MOP (Morphine, Heroin) (test code = RESULT negative MOP (Morphine, Heroin)) INTERPRETATION MOP (Morphine, Heroin) (test code = normal INTERPRETATION MOP (Morphine, Heroin)) RESULT OXY (Oxycodone) (test code = RESULT OXY negative (Oxycodone)) INTERPRETATION OXY (Oxycodone) (test code = normal INTERPRETATION OXY (Oxycodone)) RESULT MDMA (Ecstasy) (test code = RESULT MDMA negative (Ecstasy)) INTERPRETATION MDMA (Ecstasy) (test code = normal INTERPRETATION MDMA (Ecstasy)) RESULT STACIA (Cocaine) (test code = RESULT STACIA negative (Cocaine)) INTERPRETATION STACIA (Cocaine) (test code = normal INTERPRETATION STACIA (Cocaine)) RESULT PCP (test code = RESULT PCP) negative INTERPRETATION PCP (test code = INTERPRETATION PCP) normal RESULT MET (Methamphetamines) (test code = RESULT negative MET (Methamphetamines)) INTERPRETATION MET (Methamphetamines) (test code = normal INTERPRETATION MET (Methamphetamines)) Drugs identified in Urine by Screen [id number] 10:42:00 Test Item Value Reference Range Comments RESULT THC (test code = RESULT THC) negative INTERPRETATION THC (test code = INTERPRETATION THC) normal RESULT BUP (Buprenorphine, Suboxone, Subutex) (test negative code = RESULT BUP (Buprenorphine, Suboxone, Subutex)) INTERPRETATION BUP (Buprenorphine, Suboxone, normal Subutex) (test code = INTERPRETATION BUP (Buprenorphine, Suboxone, Subutex)) RESULT BAR (Barbiturates) (test code = RESULT BAR negative (Barbiturates)) INTERPRETATION BAR (Barbiturates) (test code = normal INTERPRETATION BAR (Barbiturates)) RESULT BZO (Benzodiazepines) (test code = RESULT negative BZO (Benzodiazepines)) INTERPRETATION BZO (Benzodiazepines) (test code = normal INTERPRETATION BZO (Benzodiazepines)) RESULT MTD (Methadone) (test code = RESULT MTD negative (Methadone)) INTERPRETATION MTD (Methadone) (test code = normal INTERPRETATION MTD (Methadone)) RESULT AMP (Amphetamines) (test code = RESULT AMP positive (Amphetamines)) INTERPRETATION AMP (Amphetamines) (test code = normal INTERPRETATION AMP (Amphetamines)) RESULT MOP (Morphine, Heroin) (test code = RESULT negative MOP (Morphine, Heroin)) INTERPRETATION MOP (Morphine, Heroin) (test code = normal INTERPRETATION MOP (Morphine, Heroin)) RESULT OXY (Oxycodone) (test code = RESULT OXY negative (Oxycodone)) INTERPRETATION OXY (Oxycodone) (test code = normal INTERPRETATION OXY (Oxycodone)) RESULT MDMA (Ecstasy) (test code = RESULT MDMA negative (Ecstasy)) INTERPRETATION MDMA (Ecstasy) (test code = normal INTERPRETATION MDMA (Ecstasy)) RESULT TSACIA (Cocaine) (test code = RESULT STACIA negative (Cocaine)) INTERPRETATION STACIA (Cocaine) (test code = normal INTERPRETATION STACIA (Cocaine)) RESULT PCP (test code = RESULT PCP) negative INTERPRETATION PCP (test code = INTERPRETATION PCP) normal RESULT MET (Methamphetamines) (test code = RESULT negative MET (Methamphetamines)) INTERPRETATION MET (Methamphetamines) (test code = normal INTERPRETATION MET (Methamphetamines)) [id number] 00:00:00 Test Item Value Reference Range Comments GRA# (test code = GRA#) 4.10 10^3/mm^3 1.4-6.5 Note = R T GRA% (test code = GRA%) 56.8 % 42.2-75.2 MON# (test code = MON#) 0.20 10^3/mm^3 0.1-0.6 LYM# (test code = LYM#) 2.70 10^3/mm^3 1.2-3.4 MON% (test code = MON%) 3.7 % 1.7-9.3 LYM% (test code = LYM%) 39.5 % 20.5-51.1 MPV (test code = MPV) 5.7 ?m^3 7.8-11 PLT (test code = PLT) 324 10^3/mm^3 150-400 MCHC (test code = MCHC) 33.1 g/dL 33-37 RDW (test code = RDW) 12.5 % 11.6-13.7 MCH (test code = MCH) 30.2 pg 27-37 MCV (test code = MCV) 91 ?m^3 80-99.9 HCT (test code = HCT) 39.5 % 35-60 HGB (test code = HGB) 13.1 g/dL 11-18 RBC (test code = RBC) 4.33 10^6/mm^3 4-6 WBC (test code = WBC) 7.0 10^3/mm^3 4.5-10.5 Urine test ([id number])2017-12-16 00:00:00 Test Item Value Reference Range Comments URINE PREG TEST-VIS COL (test code = 2112-1) negative rt URINALYSIS, AUTOMATED, W/O MICRO ([id number])2017-12-16 00:00:00 Test Item Value Reference Range Comments UA - COMMENTS (test code = UA - COMMENTS) . rt UA - LEUKOCYTE ESTERASE (test code = 5799-2) Negative UA - NITRITE (test code = 5802-4) Negative UA - URO (test code = UA - URO) 0.2 mg/dL UA - PROTEIN (test code = 60569-6) Negative UA - PH (test code = 5803-2) 6.0 UA - BLOOD (test code = 5794-3) ++ UA - SPECIFIC GRAVITY (test code = 2965-2) 1.020 UA - KETONES (test code = 2514-8) Trace UA - BILIRUBIN (test code = 5770-3) Negative UA - GLUCOSE (test code = 5792-7) Negative UA - COLOR (test code = 5778-6) Yellow UA - APPEARANCE (test code = 5767-9) Clear [id number] 00:00:00 Test Item Value Reference Range Comments GRA# (test code = GRA#) 4.90 10^3/mm^3 1.4-6.5 Note = s ht GRA% (test code = GRA%) 66.6 % 42.2-75.2 MON# (test code = MON#) 0.10 10^3/mm^3 0.1-0.6 MON% (test code = MON%) 2.5 % 1.7-9.3 LYM# (test code = LYM#) 2.10 10^3/mm^3 1.2-3.4 LYM% (test code = LYM%) 30.9 % 20.5-51.1 MPV (test code = MPV) 5.8 ?m^3 7.8-11 PLT (test code = PLT) 336 10^3/mm^3 150-400 RDW (test code = RDW) 12.6 % 11.6-13.7 MCHC (test code = MCHC) 33.3 g/dL 33-37 MCH (test code = MCH) 30.7 pg 27-37 MCV (test code = MCV) 92 ?m^3 80-99.9 HCT (test code = HCT) 41.1 % 35-60 HGB (test code = HGB) 13.7 g/dL 11-18 RBC (test code = RBC) 4.46 10^6/mm^3 4-6 WBC (test code = WBC) 7.1 10^3/mm^3 4.5-10.5 Comp. Metabolic Panel ([id number])2017-11-23 00:00:00 Test Item Value Reference Range Comments ALT (SGPT) (test code = 1742-6) 16 [iU]/L 0-32 AST (SGOT) (test code = 1920-8) 16 [iU]/L 0-40 Alkaline Phosphatase (test code = 6768-6) 54 [iU]/L 39-117 Bilirubin, Total (test code = 1975-2) 0.2 mg/dL 0.0-1.2 A/G Ratio (test code = 1759-0) 2.3 1.2-2.2 Globulin, Total (test code = 39650-9) 1.9 g/dL 1.5-4.5 Albumin (test code = 1751-7) 4.4 g/dL 3.5-5.5 Protein, Total (test code = 2885-2) 6.3 g/dL 6.0-8.5 Calcium (test code = 42338-9) 9.4 mg/dL 8.7-10.2 Carbon Dioxide, Total (test code = 2028-9) 24 mmol/L 20-29 Chloride (test code = 2075-0) 104 mmol/L 96-106 Potassium (test code = 2823-3) 4.3 mmol/L 3.5-5.2 Sodium (test code = 2951-2) 142 mmol/L 134-144 BUN/Creatinine Ratio (test code = 3097-3) 11 9-23 eGFR If Africn Am (test code = 64045-9) 130 mL/min/1.73 >59 eGFR If NonAfricn Am (test code = 60603-3) 113 mL/min/1.73 >59 Creatinine (test code = 2160-0) 0.65 mg/dL 0.57-1.00 BUN (test code = 3094-0) 7 mg/dL 6-20 Glucose (test code = 2345-7) 109 mg/dL 65-99 PERFORMED BY: [employer] [address] [id number] 00:00:00 Test Item Value Reference Range Comments TSH (test code = 63208-5) 2.140 uIU/mL 0.450-4.500 PERFORMED BY: [employer] [address] [id number] (RAPID SCREEN)2016-05-15 09:55:00 Test Item Value Reference Range Comments RSS (test code = RSS) NEGATIVE NEGATIVE CHEM 10:28:00 Test Item Value Reference Range Comments CL (test code = CL) 103 MMOL/L 98-110 ALK PHOS (test code = ALK PHOS) 81 U/L 50-136 GLU (test code = GLU) 94 MG/DL 70-110 AST (test code = AST) 12 U/L 9-37 K (test code = K) 4.0 MMOL/L 3.5-5.1 CO2 (test code = CO2) 30.3 MMOL/L 21.0-32.0 CA (test code = CA) 8.6 MG/DL 8.5-10.1 NA (test code = NA) 137 MMOL/L 136-145 CR (test code = CR) 0.8 MG/DL 0.4-1.3 ALT (test code = ALT) 27 U/L 9-61 BILT (test code = BILT) 0.4 MG/DL 0.1-1.0 BUN (test code = BUN) 12 MG/DL 7-18 TP (test code = TP) 7.6 G/DL 6.9-8.5 ALB (test code = ALB) 3.9 G/DL 3.2-4.7 ION GAP (test code = ION GAP) 8 4-16 EGFRAA (test code = EGFRAA) 104.05 >60.00 BUN/CREAT RATIO (test code = BUN/CREAT RATIO) 15 10 -14 EGFR (test code = EGFR) 85.85 >60.00 GLOB (test code = GLOB) 3.7 1.9-4.5 URINE [id number] 10:28:00 Test Item Value Reference Range Comments URBC (test code = URBC) 30-40 None JOSEE (test code = JOSEE) 1+ None UWBC (test code = UWBC) 4-6 NONE EPI (test code = EPI) >25 None [id number] 10:28:00 Test Item Value Reference Range Comments MCH (test code = MCH) 26.1 L PQ 26.8-33.2 RBC (test code = RBC) 4.85 CU/MM 3.69-4.88 HCT (test code = HCT) 38.8 % 33.3-41.4 WBC (test code = WBC) 8.7 K/UL 3.6-11.1 RDW (test code = RDW) 14.8 % 12.0-15.1 MCV (test code = MCV) 80 FL 79-95 HGB (test code = HGB) 12.7 G/DL 11.4-14.4 PLT (test code = PLT) 365 H K/UL 165-353 MCHC (test code = MCHC) 32.7 G/DL 33.5-35.5 LIPID [id number] 10:28:00 Test Item Value Reference Range Comments DLDL (test code = DLDL) 146 MG/DL 100-130 HDL (test code = HDL) 56 MG/DL 32-96 CHD (test code = CHD) 25.69 CHOL (test code = CHOL) 218 MG/DL 140-200 TGL (test code = TGL) 61 MG/DL 30-200 URINALYSIS([id number] 10:28:00 Test Item Value Reference Range Comments UKET (test code = UKET) NEGATIVE Negative BILL (test code = BILL) 1+ Negative UBIL (test code = UBIL) NEGATIVE MG/DL Negative PH (test code = PH) 7.5 SPGR (test code = SPGR) 1.020 1.010-1.030 COLOR (test code = COLOR) YELLOW Yellow CLAR (test code = CLAR) CLOUDY Clear NIT (test code = NIT) NEGATIVE Negative UBLD (test code = UBLD) 3+ Negative UUROBIL (test code = UUROBIL) 0.2 0.2, 1.0 UGLU (test code = UGLU) NEGATIVE Negative TPU (test code = TPU) TRACE Negative [id number] 10:28:00 Test Item Value Reference Range Comments TSH (test code = TSH) 1.59 UIU/ML 0.50-5.80 [id number] 09:25:00 Test Item Value Reference Range Comments RA (test code = RA) Negative Negative Assessments Condition Name Status Diagnosis Date Treating Clinici an Degeneration of lumbar intervertebral Active 2019-12-21 09:39:16 disc Multiple joint pain Active 2019-12-21 09:39:16 Low back pain Active 2019-12-21 09:39:16 Body mass index 30+ - obesity Active 2019-12-15 14:49:4 1 Moderate recurrent major depression Active 2019-12-23 0 8:33:07 Elevated blood-pressure reading without 08:53:01 diagnosis of hypertension Hypothyroidism Active 2019-12-15 14:36:52 Decreased progesterone level Active 2019-12-15 14:48:48 Generalized anxiety disorder Active 2019-12-15 14:49:10 Irritable bowel syndrome Active 2019-12-23 08:27:23 Gastroesophageal reflux disease without Active 08:27:29 esophagitis Chronic low back pain Active 2019-12-23 08:27:30 Attention deficit hyperactivity Active 2019-12-23 08:27 :31 disorder, predominantly inattentive type Migraine Active 2019-12-23 08:32:48 Polymyalgia rheumatica Active 2019-12-23 08:57:41 Ankylosing spondylitis Active 2019-12-23 09:03:48 Disorder of skin Active 2019-12-23 09:09:47 Chronic pelvic pain of female Active 2019-12-23 09:15:4 6 Episodic idiopathic urticaria Active 2019-12-01 07:56:0 7 Graves' disease Active 2019-12-01 07:56:17 Gastroesophageal reflux disease without Active 07:56:18 esophagitis Irritable bowel syndrome Active 2019-12-01 07:56:19 Chronic low back pain Active 2019-12-01 07:56:19 Attention deficit hyperactivity Active 2019-12-01 07:56 :20 disorder, predominantly inattentive type Body mass index 25-29 - overweight Active 2019-12-02 06 :42:58 Degeneration of lumbar intervertebral Active 2019-11-23 10:45:54 disc Low back pain Active 2019-11-23 10:45:54 Multiple joint pain Active 2019-11-23 10:57:49 Multiple joint pain Active 2019-10-17 15:14:25 Degeneration of lumbar intervertebral Active 2019-10-17 15:45:26 disc Neck pain Active 2019-10-17 15:14:25 Thoracic back pain Active 2019-10-17 15:14:26 Low back pain Active 2019-10-17 15:14:27 Long-term drug therapy Active 2019-10-17 15:23:40 Degeneration of lumbar intervertebral Active 2019-09-18 09:34:16 disc Multiple joint pain Active 2019-09-18 09:06:35 Neck pain Active 2019-09-18 09:06:35 Thoracic back pain Active 2019-09-18 09:06:36 Multiple joint pain Active 2019-08-17 11:49:20 Neck pain Active 2019-08-17 11:49:21 Thoracic back pain Active 2019-08-17 11:49:22 Low back pain Active 2019-08-17 11:49:23 Peripheral vascular disease Active 2019-08-17 11:58:23 Low back pain Active 2019-07-18 11:45:54 Raynaud's phenomenon Active 2019-07-18 12:34:52 Neck pain Active 2019-06-22 10:31:04 Thoracic back pain Active 2019-06-22 10:31:07 Low back pain Active 2019-06-22 10:31:10 Multiple joint pain Active 2019-06-22 10:33:44 Long-term drug therapy Active 2019-06-22 10:41:53 POSTOPERATIVE EXAMINATION Active FATIGUE Active PREOP EXAMINATION Active PREOP EXAMINATION Active MENORRHAGIA WITH REGULAR CYCLE Active DYSMENORRHEA Active MENORRHAGIA WITH REGULAR CYCLE Active 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 DYSMENORRHEA Active DUB (DYSFUNCTIONAL UTERINE BLEEDING) Active 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 DUB (DYSFUNCTIONAL UTERINE BLEEDING) Active Obesity, unspecified Active 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 2019-12-15 2019-12-15 Michael [facility] [id number] 00:00:00 00:00:00 Steven Immediate Immediate & 0 [place], [facility] PA-C: [address] [facility], [place] [address], Ph. 2019-12-01 2019-12-01 Urbano [facility] [id number] 00:00:00 00:00:00 MD Dora: Immediate Immediate & [address] [facility], [place] [address], Ph. 2019-11-23 2019-11-23 Neeraj Ness Butler [id number] 00:00:00 00:00:00 [facility] 8 MD Rosalinda: [facility] [address], [place] [address], Ph. 2019-10-17 2019-10-17 [id number] [facility]:00 00:00:00 Vicki, Pain Pain Center 1 PA-C: [address] , [place] [address], Ph. 2019-09-18 2019-09-18 [id number] [facility]:00:00 00:00:00 AmadorNeese, Pain Pain Center 3 PA-C: [address], [place] [address], Ph. 2019-08-17 2019-08-17 Hilario [facility] [id number] 00:00:00 00:00:00 AmadorNeese, Pain Pain Center 2 PA-C: [address], [place] [address], Ph. 2019-07-18 2019-07-18 Hilario [facility] [id number] 00:00:00 00:00:00 McNeese, Pain Pain Center 2 PA-C: [address], [place] [address], Ph. 2019-06-22 2019-06-22 Hilario [facility] [id number] 00:00:00 00:00:00 McNeese, Pain [facility] 7 PA-C: [address], [place] [address], Ph. 2018-01-24 2018-01-[address] [facility] [id number] 10:25:36 16:43:23 Visit [facility] 2018-01-17 2018-01-17 [facility] [id number] 16:37:08 16:37:08 Summary [facility] 2017-12-16 2017-12-16 [facility] [id number] 15:56:02 15:56:02 Summary [facility] 2017-12-16 2017-12-[address] [facility] [id number] 08:29:07 08:29:07 Visit [facility] 2017-11-23 2017-11-[address] [facility] [id number] 10:33:42 10:33:42 Visit [facility] 2017-10-25 2017-10-25 [facility] [id number] 16:22:28 16:22:28 Summary [facility] 2017-10-05 2017-10-[address] [facility] [id number] 15:04:05 15:04:05 Visit [facility] 2017-09-21 2017-09-[address] [facility] [id number] 15:29:14 15:29:14 Visit [facility] 2017-09-21 2017-09-21 [facility] [id number] 10:26:22 10:26:22 Summary [facility] 2017-06-21 2017-06-21 Outpatient [facility] [id number] 00:00:00 23:59:00 [id number] 2017-04-26 2017-04-26 Outpatient [facility] [id number] 00:00:00 00:00:00 [id number] 2017-04-12 2017-04-12 Outpatient [facility] [id number] 00:00:00 00:00:00 [id number] 2015-05-03 2015-05-03 Outpatient Georgi Luna [id number] 10:45:00 10:45:00 , [facility] [id number] - Health [id number] [facility] 2015-03-07 2015-03-07 Outpatient Georgi Luna [id number] 10:30:00 10:30:00 , [facility] [id number] - Health [id number] [facility] 2014-12-19 2014-12-19 Outpatient Ranjan TRIPLETTJASMEET [id number] 14:30:00 14:30:00 [facility] [id number] [facility] 2014 2014 Outpatient Georgi Luna [id number] 14:30:00 14:30:00 , Michael [facility] [id number] - Health [id number] [facility] [employer] [facility] Family History Family Member Diagnosis Comments Start Date Stop Date Unspecified Hypertension Father. Immunizations Ordered Immunization Filled Immunization Date Status Commen ts Refusal Reason Name Name Tdap Unknown Completed Payers Payer Name Policy Type Policy Number Effective Date Expiration D ate Medicaid [facility] MEDICAID [place] [id number] 2017 00:00:00 ACCESS Plan of Treatment Planned Activity Planned Date Details Comments Future Scheduled Test [code = ] Future Scheduled Test [code = ] Future Scheduled Test [code = ] Future Scheduled Test [code = ] Future Appointment 2020-01-18 09:20:00 Hilario Cohen, [address]; [address], [place] [address] Social History Social Habit Start Date Stop Date Comments Tobacco Use Alcohol Use Drug Use Primary Control Method Sexual Activity Smoking Status Start Date Stop Date Unknown If Ever Smoked Never Smoker Vital Signs Vital Name Observation Time Observation Value Comments BP Diastolic 2019-12-21 00:00:00 68 mm[Hg] Height 2019-12-21 00:00:00 64 [in_i] BP Systolic 2019-12-21 00:00:00 108 mm[Hg] BP Diastolic 2019-12-15 00:00:00 96 mm[Hg] Height 2019-12-15 00:00:00 64 [in_i] BMI (Body Mass Index) 2019-12-15 00:00:00 30.5 kg/m2 BP Systolic 2019-12-15 00:00:00 149 mm[Hg] Body Weight 2019-12-15 00:00:00 177.4 [lb_av] BP Diastolic 2019-11-23 00:00:00 82 mm[Hg] Height 2019-11-23 00:00:00 64 [in_i] BP Systolic 2019-11-23 00:00:00 121 mm[Hg] Height 2019-10-17 00:00:00 64 [in_i] BMI (Body Mass Index) 2019-10-17 00:00:00 27.5 kg/m2 Body Weight 2019-10-17 00:00:00 160 [lb_av] Height 2019-09-18 00:00:00 64 [in_i] Height 2019-08-17 00:00:00 64 [in_i] BP Diastolic 2019-07-18 00:00:00 86 mm[Hg] Height 2019-07-18 00:00:00 64 [in_i] BP Systolic 2019-07-18 00:00:00 132 mm[Hg] BP Diastolic 2019-06-22 00:00:00 92 mm[Hg] Height 2019-06-22 00:00:00 64 [in_i] BMI (Body Mass Index) 2019-06-22 00:00:00 27.5 kg/m2 BP Systolic 2019-06-22 00:00:00 136 mm[Hg] Body Weight 2019-06-22 00:00:00 160 [lb_av] BP Systolic 2018-01-24 16:00:41 118 mm[Hg] Patient Posi tion: Sitting; Cuff Location: Left A rm; Cuff Size: Stand gi BP Diastolic 2018-01-24 16:00:41 76 mm[Hg] Patient Posi tion: Sitting; Cuff Location: Left A rm; Cuff Size: Stand gi Weight 2018-01-24 16:00:41 156.375 [lb_av] Height 2018-01-24 16:00:41 64 [in_us] Body Mass Index 2018-01-24 16:00:41 26.84 kg/m2 Calculated Temperature 2017-12-16 14:25:13 98.1 [degF] Pulse 2017-12-16 14:25:13 74 /min Pattern: Reg ular Respiration Rate 2017-12-16 14:25:13 20 /min Pattern: Un labored BP Systolic 2017-12-16 14:25:13 110 mm[Hg] Patient Posi tion: Sitting; Cuff Location: Left A rm; Cuff Size: Stand gi BP Diastolic 2017-12-16 14:25:13 68 mm[Hg] Patient Posi tion: Sitting; Cuff Location: Left A rm; Cuff Size: Stand gi Weight 2017-12-16 14:25:13 154.125 [lb_av] Height 2017-12-16 14:25:13 64 [in_us] Body Mass Index 2017-12-16 14:25:13 26.46 kg/m2 Calculated BP Systolic 2017-11-23 13:43:51 102 mm[Hg] Patient Posi tion: Sitting; Cuff Location: Left A rm; Cuff Size: Stand gi BP Diastolic 2017-11-23 13:43:51 76 mm[Hg] Patient Posi tion: Sitting; Cuff Location: Left A rm; Cuff Size: Stand gi Weight 2017-11-23 13:43:51 154.125 [lb_av] Height 2017-11-23 13:43:51 64 [in_us] Body Mass Index 2017-11-23 13:43:51 26.46 kg/m2 Calculated BP Systolic 2017-10-05 15:04:51 128 mm[Hg] Patient Posi tion: Sitting; Cuff Location: Left A rm; Cuff Size: Stand gi BP Diastolic 2017-10-05 15:04:51 70 mm[Hg] Patient Posi tion: Sitting; Cuff Location: Left A rm; Cuff Size: Stand gi Weight 2017-10-05 15:04:51 156 [lb_av] Height 2017-10-05 15:04:51 64 [in_us] Body Mass Index 2017-10-05 15:04:51 26.78 kg/m2 Calculated Temperature 2017-09-21 15:37:29 98.5 [degF] Pulse 2017-09-21 15:37:29 76 /min Pattern: Reg ular Respiration Rate 2017-09-21 15:37:29 20 /min Pattern: Un labored BP Systolic 2017-09-21 15:37:29 132 mm[Hg] Patient Posi tion: Sitting; Cuff Location: Left A rm; Cuff Size: Stand gi BP Diastolic 2017-09-21 15:37:29 74 mm[Hg] Patient Posi tion: Sitting; Cuff Location: Left A rm; Cuff Size: Stand gi Weight 2017-09-21 15:37:29 157 [lb_av] Height 2017-09-21 15:37:29 64 [in_us] Body Mass Index 2017-09-21 15:37:29 26.95 kg/m2 Calculated Hospital Discharge Instructions 1. Episodic idiopathic urticaria pulse oximetry (PROC) hydroxyzine HCl 25 mg tablet prednisone 20 mg tablet dexamethasone sodium phosphate (PF) 10 mg/mL injection syringe diphenhydramine 50 mg/mL injection syringe dermatology referral - PLEASE EVAL AND MAKE RECOMMENDATIONS triamcinolone acetonide 0.1 % topical cream 2. Graves' disease 3. Gastroesophageal reflux disease without esophagitis 4. Irritable bowel syndrome 5. Chronic low back pain 6. Attention deficit hyperactivity disorder, predominantly inattentive type 7. Body mass index 25-29 - overweight Discussion Note All pt. questions and concerns were addressed and answered. Pt. verbalized understanding and agreement of treatment plan. I spent up to 15 minutes of face to face time with patient and > 50% was spent in counseling and/or coordination of care. Quality measures/ USPSTF/AAFP screening guidelines and recommendations were reviewed and discussed and appropriate orders initiated if applicable. Patient educational handouts: No information available.1. Degeneration of lumbar intervertebral disc 2. Low back pain 3. Multiple joint pain hydrocodone 5 mg-acetaminophen 325 mg tablet Discussion Note: None recorded. Patient educational handouts: No in formation available.1. Degeneration of lumbar intervertebral disc hydrocodone 5 mg-acetaminophen 325 mg tablet 2. Multiple joint pain 3. Neck pain neck pain: care instructions 4. Thoracic back pain healthy upper back: exercises Discussion Note NOTE: This encounter has been documented utilizing voice recognition software. While this note has been edited for accuracy, the software periodically misinterpretsspeech resulting in errors that might not have been caught during the editing process. In the event that you find an unusual error in this record, please notify us to resolve the issue.r1. Neck pain neck pain: care instructions XR, cervical spine celecoxib 200 mg capsule methocarbamol 500 mg tablet physical therapy referral hydrocodone 5 mg-acetaminophen 325 mgtablet 2. Thoracic back pain healthy upper back: exercises XR, thoracic spine 3. Low back pain back care and preventing injuries: care instructions getting back to normal after low back pain: care instructions learning about relief for back pain XR, lumbar spine 4. Multiple joint pain rf (rheumatoid factor), serum CRP, high sensitivity, serum or plasma ESR (erythrocyte sedimentation rate), blood YUE (antinuclear antibodies) screen, serum diclofenac 1 % topical gel 5. Long-term drug therapy drug screen, urine drug screen, urine Discussion Note NOTE: This encounter has been documented utilizing voice recognition software. While this note has been edited for accuracy, the software periodically misinterprets speech resulting in errors that might not have been caught during the editing process. In the event that you find an unusual error in this record, please notify us to resolve the issue.No Instruction Information AvailableNo Instruction Information AvailableNo Instruction Information AvailableNo Instruction Information AvailableNo Instruction Information Available
== END ==
LOC: HHS 09:12
DX: Z12.83 Encounter for screening for malignant neoplasm of skin (principal)

== ENCOUNTER 2020-01-17 19:38 | Emergency (ER) | payer MEDICAID ==
--- NOTE | 2020-01-17 20:35 | ER Document Report ---
ED Medical Screen (RME) - General Chief Complaint: Numbness Stated Complaint: POSSIBLE NUMBNESS IN FOOT Time Seen by Provider: 01/17/20 20:24 Primary Care Provider: SAMMIE LINARES MD [Primary Care Provider] - Follow up as needed TRAVEL OUTSIDE OF THE [place] IN LAST 30 DAYS: No - HPI Notes: Patient is a 39-year-old female with a history of Juan Miguel's disease who presents with bilateral feet swelling and dizziness for the past couple days. Patient also reports palpitations. She reports having swelling to her bilateral feet, purple discoloration and numbness intermittently for the past month. She is currently being seen by vascular for this issue and has appointment on January 25, 2020. She is also being worked up for possible lupus but she states there is a long wait to get in with rheumatology. She denies chest pain, shortness of breath, abdominal pain, vomiting, and fever. - Related Data Allergies/Adverse Reactions: No Known Allergies Allergy (Verified 06/21/13 14:51) Past Medical History GI Medical History: Reports: Hx Ulcer Musculoskeltal Medical History: Reports Hx Musculoskeletal Deformity Psychiatric Medical History: Reports: Hx Depression Past Surgical History: Reports: Hx Section, Hx Cholecystectomy - Immunizations Immunizations up to date: Yes Hx Diphtheria, Pertussis, Tetanus Vaccination: Yes Physical Exam - Vital signs Vitals: Temp Pulse Resp BP Pulse Ox 97.9 F 83 20 140/80 H 100 01/17/20 19:45 01/17/20 19:45 01/17/20 19:45 01/17/20 19:45 01/17/20 19:45 - HEENT Pupils: PERRL - Cardiovascular Rhythm: Regular Heart sounds: Normal auscultation Course - Re-evaluation Re-evalutation: I have greeted and performed a rapid initial assessment of this patient. A comprehensive ED assessment and evaluation of the patient, analysis of test results and completion of medical decision making process will be conducted by an additional ED providers. - Vital Signs Vital signs: Temp Pulse Resp BP Pulse Ox 97.9 F 83 20 140/80 H 100 01/17/20 19:45 01/17/20 19:45 01/17/20 19:45 01/17/20 19:45 01/17/20 19:45 Doctor's Discharge - Discharge Referrals: VIJAY,SAMMIE E, MD [Primary Care Provider] - Follow up as needed
--- NOTE | 2020-01-17 21:21 | RADIOLOGY REPORT (SQ) ---
EXAM DESCRIPTION: XR CHEST 1 VIEW COMPLETED DATE/TME: 01/17/2020 20:47 CLINICAL HISTORY: 39 years, Female, palpitations COMPARISON: None. NUMBER OF VIEWS: One TECHNIQUE: Single frontal view of the chest was obtained LIMITATIONS: None. FINDINGS: Cardiac and mediastinal contours are normal. Lungs are clear. No pleural effusion or pneumothorax. IMPRESSION: No acute disease. copyright 2010 [employer]- All Rights Reserved
[2020-01-17 21:33] LABS: ABSOLUTE BASOPHILS # (AUTO) 0.1 10^3/uL (0.0-0.2); ABSOLUTE LYMPHOCYTES (AUTO) 2.9 10^3/uL (0.5-4.7); ABSOLUTE MONOCYTES (AUTO) 0.5 10^3/uL (0.1-1.4); ABSOLUTE NEUT (AUTO) 6.4 10^3/uL (1.7-8.2); BASOPHILS % (AUTO) 0.8 % (0-2); EOSINOPHILS % (AUTO) 0.4 % (0-6); HEMATOCRIT 40.9 % (36.0-47.0); HEMOGLOBIN 13.8 g/dL (12.0-15.5); MEAN CORPUSCULAR HEMOGLOBIN 30.6 pg (27.0-33.4); MEAN CORPUSCULAR HGB CONC 33.7 g/dL (32.0-36.0); MEAN CORPUSCULAR VOLUME 91 fl (80-97); MONOCYTES % (AUTO) 5.3 % (3-13); PLATELET COUNT 290 10^3/uL (150-450); RED CELL DISTRIBUTION WIDTH 13.8 % (11.5-14.0); SEGMENTED NEUTROPHILS % (AUTO) 64.5 % (42-78); TOTAL CELLS COUNTED % (AUTO) 100 %; WHITE BLOOD COUNT 9.9 10^3/uL (4.0-10.5)
[2020-01-17] MEDS ORDERED: MECLIZINE HCL 25 MG TABLET PO ONE (21:37)
[2020-01-17 21:51] LABS: ALBUMIN 4.1 g/dL (3.5-5.0); ALKALINE PHOSPHATASE 63 U/L (38-126); ASPARTATE AMINO TRANSFERASE 22 U/L (14-36); BILIRUBIN,TOTAL 0.5 mg/dL (0.2-1.3); BLOOD UREA NITROGEN 12 mg/dL (7-20); CALCIUM 9.4 mg/dL (8.4-10.2); CARBON DIOXIDE 29 mmol/L (22-30); CHLORIDE 101 mmol/L (98-107); GLUCOSE 102 mg/dL (75-110); POTASSIUM 4.1 mmol/L (3.6-5.0); TOTAL PROTEIN 6.8 g/dL (6.3-8.2)
--- NOTE | 2020-01-17 21:54 | ER Document Report ---
ED General - General Chief Complaint: Dizziness Stated Complaint: POSSIBLE NUMBNESS IN FOOT Time Seen by Provider: 01/17/20 20:24 Primary Care Provider: SAMMIE LINARES MD [Primary Care Provider] - Follow up as needed Mode of Arrival: Ambulatory Information source: Patient Notes: Patient presents complaining of dizziness in which she feels off balance. Patient states that she has had some palpitations for the past several days. Patient reports that she will occasionally get a purple discoloration to her toes that she has had off and on for the past month. Patient states she has been evaluated for possible Raynaud's and has an appointment with a vascular surgeon next week. Patient states that today she noticed she had bilateral foot swelling which prompted her visit today. Patient does complain of some increased stress lately. Patient denies any chest pain, shortness of breath, abdominal pain or fever. Patient states that she has had a low positive YUE and they are working her up for possible lupus although she is awaiting a rheumatology referral at this time. TRAVEL OUTSIDE OF THE [place] IN LAST 30 DAYS: No - HPI Onset/Duration: Waxing and waning Quality of pain: No pain Pain Level: Denies Associated symptoms: Other - Discoloration of toes, foot swelling. denies: Chest pain, Nonproductive cough, Productive cough, Fever, Nausea, Vomiting Exacerbated by: Denies Relieved by: Denies Similar symptoms previously: Yes Recently seen / treated by doctor: No - Related Data Allergies/Adverse Reactions: No Known Allergies Allergy (Verified 06/21/13 14:51) Home Medications: levotyroxine, vit d, vit b, low dose asa, celebrex, adderall xr, paxil Past Medical History - General Information source: Patient - Social History Smoking Status: Never Smoker Frequency of alcohol use: Occasional Drug Abuse: None Occupation: None Family History: Reviewed & Not Pertinent, CAD - Medical History Medical History: Other - Possible lupus Endocrine Medical History: Reports: Other - Juan Miguel thyroiditis GI Medical History: Reports: Hx Ulcer Musculoskeletal Medical History: Reports Hx Arthritis - Back pain, Reports Hx Musculoskeletal Deformity Psychiatric Medical History: Reports: Hx Depression Past Surgical History: Reports: Hx Section, Hx Cholecystectomy, Other - Gastric sleeve, uterine ablation - Immunizations Immunizations up to date: Yes Hx Diphtheria, Pertussis, Tetanus Vaccination: Yes Review of Systems - Review of Systems Constitutional: No symptoms reported. denies: Fever, Recent illness EENT: No symptoms reported Cardiovascular: Palpitations, Dizziness. denies: Chest pain Respiratory: No symptoms reported. denies: Cough, Short of breath Gastrointestinal: No symptoms reported. denies: Abdominal pain, Nausea, Vomiting Genitourinary: No symptoms reported Female Genitourinary: No symptoms reported Musculoskeletal: Other - Bilateral foot swelling. denies: Leg swelling Skin: Change in color - Discoloration of toes that comes and goes Hematologic/Lymphatic: No symptoms reported Neurological/Psychological: Anxiety Physical Exam - Vital signs Vitals: Temp Pulse Resp BP Pulse Ox 97.9 F 83 20 140/80 H 100 01/17/20 19:45 01/17/20 19:45 01/17/20 19:45 01/17/20 19:45 01/17/20 19:45 - General General appearance: Appears well, Alert In distress: None - HEENT Head: Normocephalic, Atraumatic Eyes: Normal Conjunctiva: Normal Pupils: PERRL Ears: Normal External canal: Normal Tympanic membrane: Normal Nasal: Normal Mouth/Lips: Normal Mucous membranes: Normal Neck: Normal, Supple. No: Meningismus - Respiratory Respiratory status: No respiratory distress Chest status: Nontender Breath sounds: Normal. No: Rales, Rhonchi, Stridor, Wheezing Chest palpation: Normal - Cardiovascular Rhythm: Regular. No: Tachycardia Heart sounds: S1 appreciated, S2 appreciated Murmur: No Pulses: Normal: Radial, Posterior tibial, Dorsalis pedis Normal capillary refill: Yes - Back Back: Normal, Nontender. No: CVA tenderness - Extremities General upper extremity: Normal inspection, Nontender, Normal ROM. No: Edema General lower extremity: Nontender, Normal ROM. No: Edema - Neurological Neuro grossly intact: Yes Cognition: Normal Laura Coma Scale Eye Opening: Spontaneous Laura Coma Scale Verbal: Oriented Laura Coma Scale Motor: Obeys Commands Laura Coma Scale Total: 15 - Psychological Associated symptoms: Anxious - Mildly anxious - Skin Skin Temperature: Warm Skin Moisture: Dry Skin Color: Other - Mild bluish tint to distal nailbeds, symptoms reproduced with dangling feet off side of the bed. 2+ pedal pulses bilaterally. Course - Re-evaluation Re-evalutation: 01/17/20 21:[address] Beltran regarding patient presentation and diagnostic evaluation, agrees with plan and evaluation at this time. 01/17/20 23:11 Patient reports dizzy symptoms have resolved after the meclizine tablet. Pa tient with 2+ pedal pulses bilaterally, no concern for any acute ischemia. Patient without any chest pain. Patient EKG reviewed which was sinus rhythm without any acute ischemic changes. Patient with no elevation in troponin and a heart score of three. Patient does have pending appointment with vascular surgeon as well as pending appointment with coat operator insulator. Patient encouraged to follow-up with specialist as planned. Discussed worsening symptoms that patient should return immediately for. Patient verbalized understanding and is agreeable with discharge plan of care at this time. - Vital Signs Vital signs: Temp Pulse Resp BP Pulse Ox 97.7 F 71 20 133/76 H 100 01/17/20 23:03 01/17/20 23:03 01/17/20 19:45 01/17/20 23:03 01/17/20 23:03 - Laboratory Result Diagrams: 01/17/20 21:11 01/17/20 21:11 Laboratory results interpreted by me: 01/17/20 21:11 Sodium 133.0 L Anion Gap 3 L Magnesium 2.4 H Labs- All tests 24 hr 01/17/20 01/17/20 01/17/20 21:11 21:11 21:11 WBC 9.9 RBC 4.50 Hgb 13.8 Hct 40.9 MCV 91 MCH 30.6 MCHC 33.7 RDW 13.8 Plt Count 290 Lymph % (Auto) 29.0 [place] % (Auto) 5.3 Eos % (Auto) 0.4 Baso % (Auto) 0.8 Absolute Neuts (auto) 6.4 Absolute Lymphs (auto) 2.9 Absolute Monos (auto) 0.5 Absolute Eos (auto) 0.0 Absolute Basos (auto) 0.1 Seg Neutrophils % 64.5 Sodium 133.0 L Potassium 4.1 Chloride 101 Carbon Dioxide 29 Anion Gap 3 L BUN 12 Creatinine 0.66 Est GFR ( Amer) > 60 Est GFR (MDRD) Non-Af > 60 Glucose 102 Calcium 9.4 Magnesium 2.4 H Total Bilirubin 0.5 Direct Bilirubin 0.0 Neonat Total Bilirubin Not Reportable Neonat Direct Bilirubin Not Reportable Neonat Indirect Bili Not Reportable AST 22 ALT 17 Alkaline Phosphatase 63 Troponin I < 0.012 Total Protein 6.8 Albumin 4.1 TSH Free T4 Free T3 pg/mL 01/17/20 01/17/20 21:11 21:11 WBC RBC Hgb Hct MCV MCH MCHC RDW Plt Count Lymph % (Auto) [place] % (Auto) Eos % (Auto) Baso % (Auto) Absolute Neuts (auto) Absolute Lymphs (auto) Absolute Monos (auto) Absolute Eos (auto) Absolute Basos (auto) Seg Neutrophils % Sodium Potassium Chloride Carbon Dioxide Anion Gap BUN Creatinine Est GFR ( Amer) Est GFR (MDRD) Non-Af Glucose Calcium Magnesium Total Bilirubin Direct Bilirubin Neonat Total Bilirubin Neonat Direct Bilirubin Neonat Indirect Bili AST ALT Alkaline Phosphatase Troponin I Total Protein Albumin TSH 1.97 Free T4 1.08 Free T3 pg/mL 3.07 - Diagnostic Test Radiology reviewed: Image reviewed, Reports reviewed - EKG Interpretation by Me EKG shows normal: Sinus rhythm Rate: Normal Rhythm: NSR When compared to previous EKG there are: No significant change Additional EKG results interpreted by me: 01/17/20 22:05 Sinus rhythm with rate of 66, QTc 420, no acute ischemic changes, no significant change when compared to prior EKG Discharge - Discharge Clinical Impression: Palpitations, Dizziness, Swollen feet Condition: Stable Disposition: HOME, SELF-CARE Instructions: Edema, Peripheral ([facility]), Meclizine ([facility]), Vertigo ([facility]) Additional Instructions: Return immediately for any new or worsening symptoms Followup with your primary care provider, call tomorrow to make a followup appointment Follow-up with vascular surgeon as planned Prescriptions: Meclizine HCl [Antivert 25 mg Tablet] 25 mg PO ASDIR PRN #12 tablet PRN Reason: Referrals: SAMMIE LINARES MD [Primary Care Provider] - Follow up as needed
[2020-01-17 21:59] LABS: ANION GAP 3 (5-19)
[2020-01-17 22:06] LABS: FREE T3 3.07 pg/mL (2.77-5.27); FREE T4 (FREE THYROXINE) 1.08 ng/dL (0.78-2.19)
[2020-01-17 23:05] VITALS: BP 133/76
--- NOTE | 2020-01-18 17:42 | EKG REPORT ---
SEVERITY:- NORMAL ECG - SINUS RHYTHM : Confirmed by: Mikey Feldman MD 18-Jan-2020 17:41:35
== END 2020-01-17 23:55 | disposition home or self-care (01) ==
LOC: ER 19:38
DX: R42 Dizziness and giddiness (principal); R00.2 Palpitations; M79.89 Other specified soft tissue disorders; F43.9 Reaction to severe stress, unspecified; Z79.899 Other long term (current) drug therapy
CPT/HCPCS: 36415; 71045; 80053; 83735; 84439; 84443; 84481; 84484; 85025; 93005; 93010; 99285